=== PATIENT | female | born 1955 | race Caucasian/White ===

== ENCOUNTER 2017-01-20 07:33 | Day surgery (SDC) | payer BC, OTHER ==
[~2017-01-20 07:33] MED LIST: Lactated Ringers 1,000 ML IV SCH
[2017-01-20] MEDS ORDERED: Propofol 200 MG/20 ML SDV ONE ×2 (09:32→09:46)
[2017-01-20] MEDS ORDERED: fentaNYL 100 MCG/2 ML SDV ONE (09:32)
[2017-01-20 12:35] VITALS: BP 119/68
--- NOTE | 2017-01-20 15:04 | OR ---
PREOPERATIVE DIAGNOSIS: History of colon polyps. Last colonoscopy in 2011. She does have chronic constipation as well. POSTOPERATIVE DIAGNOSES: 1. Long redundant colon which did require scope maneuvering as well as abdominal pressure to obtain cecal intubation. 2. Moderate hemorrhoids. PROCEDURE: Colonoscopy. ANESTHESIA: Monitored anesthesia care. BOWEL PREP: Fair and did require significant amount of irrigation and suctioning. DESCRIPTION OF PROCEDURE: Shu was a 61-year-old female who was brought to the endoscopy suite after discussing risks and benefits of the procedure. Informed consent was obtained for conscious sedation and colonoscopy with or without biopsy and/or polypectomy. We also discussed possibility of missed lesions. Pre-procedure exam was unremarkable. IV, oxygen, and monitors were placed. The patient was placed in the left lateral decubitus position. Sedation was administered and a digital rectal exam was performed and was remarkable for some moderate external hemorrhoids, not acutely inflamed. Colonoscope was passed into the rectum and slowly advanced all the way to the cecum. Cecum was viewed and photographed. The colonoscope was slowly withdrawn and the mucosa was closed observed in a direct circumferential manner. The ascending colon was unremarkable. The transverse colon was unremarkable. The descending colon was unremarkable. The sigmoid colon was unremarkable. Retroflexion was performed, and rectal mucosa was remarkable for some moderate internal hemorrhoids, not acutely inflamed. Scope was removed. The patient tolerated the procedure well. The patient was monitored until that baseline status. Discharge instructions were reviewed and the patient was discharged in good condition. COMPLICATIONS: None. TOTAL TIME: 24 minutes. ESTIMATED BLOOD LOSS: None. RECOMMENDATIONS/FOLLOWUP: Recommend repeating colonoscopy again in 5 years given the personal history of colon polyps. I would like to kindly thank January Saravia for this referral. DMB: 01/20/2017 10:14:22 MODL: 01/20/2017 14:38:28 /[id number]
== END 2017-01-20 12:50 | disposition home or self-care (01) ==
LOC: MERGE 07:33 → VM.SDS 07:33
PROVIDERS: ATTEND Family Medicine
DX: Z12.11 Encounter for screening for malignant neoplasm of colon (principal); Z86.010 Personal history of colon polyps; K64.8 Other hemorrhoids; K64.4 Residual hemorrhoidal skin tags; E03.9 Hypothyroidism, unspecified; E78.2 Mixed hyperlipidemia; E55.9 Vitamin D deficiency, unspecified; E66.9 Obesity, unspecified; Z68.35 Body mass index [BMI] 35.0-35.9, adult; Z88.8 Allergy status to other drugs, medicaments and biological substances; Z79.899 Other long term (current) drug therapy; Z90.710 Acquired absence of both cervix and uterus; Z98.890 Other specified postprocedural states
CPT/HCPCS: 45378; J2704; J3010; J7120

== ENCOUNTER 2022-04-01 10:22 | Day surgery (SDC) | payer MEDICARE, OTHER ==
[2022-04-01] MEDS ORDERED: fentaNYL 100 MCG/2 ML SDV ONE (11:10)
[2022-04-01] MEDS ORDERED: Propofol 200 MG/20 ML SDV ONE ×5 (11:10→13:15)
[2022-04-01 13:59] VITALS: BP 124/70; PULSE 76
== END 2022-04-01 14:46 | disposition home or self-care (01) ==
LOC: VM.SDS 10:22
PROVIDERS: ATTEND Family Medicine
DX: Z12.11 Encounter for screening for malignant neoplasm of colon (principal); K64.9 Unspecified hemorrhoids; E03.9 Hypothyroidism, unspecified; E66.9 Obesity, unspecified; E78.2 Mixed hyperlipidemia; Z79.899 Other long term (current) drug therapy; Z90.710 Acquired absence of both cervix and uterus; Z98.890 Other specified postprocedural states; Z86.010 Personal history of colon polyps; Z88.6 Allergy status to analgesic agent; Z68.38 Body mass index [BMI] 38.0-38.9, adult; Z88.8 Allergy status to other drugs, medicaments and biological substances
CPT/HCPCS: 00811; G0105; J2704; J3010; J7120

== ENCOUNTER 2024-05-24 10:57 | Inpatient (IN) | payer MEDICARE, OTHER ==
[2024-05-24] MEDS ORDERED: Sodium Chloride 0.9% 10 ML Syringe FLUSH PRN (12:14)
[2024-05-24 13:02] LABS: BASOPHILS PERCENT AUTO 0.3 % (0.2-1.2); EOSINOPHILS ABSOLUTE AUTO 0.1 x10^3/uL (0.0-0.5); EOSINOPHILS PERCENT AUTO 0.9 % (0.0-4.0); HEMATOCRIT 38.1 % (33.0-47.0); HEMOGLOBIN 12.6 g/dL (12.0-16.0); IMMATURE GRAN ABSOLUTE AUTO 0.04 x10^3/uL (0.00-0.07); LYMPHOCYTES PERCENT AUTO 58.3 % (25.0-50.0); MEAN CORPUSCULAR HGB CONC 33.1 g/dL (32.0-36.0); MEAN CORPUSCULAR VOLUME 96.7 fL (78.0-93.0); MONOCYTES ABSOLUTE AUTO 0.4 x10^3/uL (0.0-0.8); MONOCYTES PERCENT AUTO 6.1 % (2.0-11.0); NEUTROPHILS ABSOLUTE AUTO 2.3 x10^3/uL (1.8-7.7); NEUTROPHILS PERCENT AUTO 33.8 % (50.0-80.0); PLATELET COUNT,PLT 228 x10^3/uL (130-400); RED BLOOD CELL COUNT 3.94 x10^6/uL (4.00-5.50); WHITE BLOOD CELL COUNT,WBC 6.8 x10^3/uL (4.0-10.0)
[2024-05-24 13:22] LABS: A/G RATIO 0.83; ALBUMIN 3.3 g/dL (3.4-5.0); BILIRUBIN TOTAL 0.5 mg/dL (0.2-1.0); CALCIUM 8.9 mg/dL (8.5-10.1); EST CRCL DRUG DOSING (CG) 51.63 mL/min; POTASSIUM,K 3.9 mmol/L (3.5-5.1); PROTEIN TOTAL,TP 7.3 g/dL (6.4-8.2)
[2024-05-24] MEDS: Enoxaparin 100 MG/1 ML Syringe SUBCUT ONE (13:22)
[2024-05-24 13:23] LABS: ANION GAP 14.9 mmol/L (5-15)
[2024-05-24 13:32] LABS: PROTHROMBIN TIME 10.4 SEC (8.9-11.5); PTT,PARTIAL THROMBOPLSTIN TIME 27.7 SEC (21.9-33.8)
[2024-05-24] MEDS: Apixaban 2.5 MG Tab PO SCH (20:06)
[2024-05-25] MEDS: Levothyroxine 25 MCG Tab PO SCH (06:29)
[2024-05-25] MEDS: Levothyroxine 112 MCG Tab PO SCH (06:29)
[2024-05-25] MEDS ORDERED: Levothyroxine 125 MCG Tab PO SCH (07:00)
[2024-05-25 07:14] LABS: BASOPHILS PERCENT AUTO 0.4 % (0.2-1.2); EOSINOPHILS ABSOLUTE AUTO 0.1 x10^3/uL (0.0-0.5); EOSINOPHILS PERCENT AUTO 1.7 % (0.0-4.0); HEMATOCRIT 36.3 % (33.0-47.0); IMMATURE GRAN ABSOLUTE AUTO 0.03 x10^3/uL (0.00-0.07); LYMPHOCYTES ABSOLUTE AUTO 3.4 x10^3/uL (1.0-4.8); LYMPHOCYTES PERCENT AUTO 64.2 % (25.0-50.0); MEAN CORPUSCULAR HEMOGLOBIN 32.2 pg (26.0-32.0); MEAN CORPUSCULAR HGB CONC 33.1 g/dL (32.0-36.0); MEAN CORPUSCULAR VOLUME 97.3 fL (78.0-93.0); MONOCYTES ABSOLUTE AUTO 0.5 x10^3/uL (0.0-0.8); MONOCYTES PERCENT AUTO 8.7 % (2.0-11.0); NEUTROPHILS ABSOLUTE AUTO 1.3 x10^3/uL (1.8-7.7); NEUTROPHILS PERCENT AUTO 24.4 % (50.0-80.0); PLATELET COUNT,PLT 223 x10^3/uL (130-400); RED BLOOD CELL COUNT 3.73 x10^6/uL (4.00-5.50); WHITE BLOOD CELL COUNT,WBC 5.3 x10^3/uL (4.0-10.0)
[2024-05-25 07:26] LABS: ANION GAP 11.1 mmol/L (5-15); CREATININE 0.9 mg/dL (0.55-1.02); EST CRCL DRUG DOSING (CG) 57.37 mL/min; POTASSIUM,K 4.1 mmol/L (3.5-5.1)
[2024-05-25 09:14] VITALS: BP 152/78; PULSE 98
[2024-05-26 22:07] LABS: AT III ANTIGEN 90 % (82-136); AT III ENZYMATIC 106 % (76-128)
[2024-05-27 05:07] LABS: B2GLYCPRT1 IGG AB <10 SGU (<=20); B2GLYCPRT1 IGM AB <10 SMU (<=20)
[2024-05-29 12:07] LABS: ANTI-XA QUALITATIVE INTERP Not Performed (Not Present); ANTICOAG MEDICATION NEUTRALIZ Not Performed (Not Performed); DRVVT 1:1 MIX RATIO Not Performed (<=1.20); DRVVT CONFIRMATION RATIO Not Performed (<=1.20); DRVVT SCREEN RATIO 0.77 (<=1.20); HEXAGONAL PHOSPHOLIPID CONFIRM Not Performed s (<=7.9); NEUTRALIZED DRVVT SCREEN RATIO Not Performed (<=1.20); NEUTRALIZED PTT-LA RATIO Not Performed (<=1.20); PROTHROMBIN TIME (PT) 13.6 s (12.0-15.5); PTT-LA RATIO 1.08 (<=1.20); THROMBIN TIME (TT) Not Performed s (<=19.5)
[2024-05-29 23:01] LABS: FACTOR V LEIDEN R506Q MUTATION Heterozygous; FACV SPECIMEN Whole Blood
== END 2024-05-25 10:00 | disposition home or self-care (01) | DRG 299 ==
LOC: VM.MS 10:57
PROVIDERS: ADMIT Internal Medicine; ATTEND Internal Medicine
DX: I82.493 Acute embolism and thrombosis of other specified deep vein of lower extremity, bilateral (principal); I26.99 Other pulmonary embolism without acute cor pulmonale; J98.11 Atelectasis; C50.919 Malignant neoplasm of unspecified site of unspecified female breast; E03.9 Hypothyroidism, unspecified; E78.2 Mixed hyperlipidemia; E66.9 Obesity, unspecified; H91.90 Unspecified hearing loss, unspecified ear; R03.0 Elevated blood-pressure reading, without diagnosis of hypertension; Z88.5 Allergy status to narcotic agent; Z92.3 Personal history of irradiation; Z88.8 Allergy status to other drugs, medicaments and biological substances; Z90.710 Acquired absence of both cervix and uterus; Z68.37 Body mass index [BMI] 37.0-37.9, adult; Z98.890 Other specified postprocedural states; Z79.890 Hormone replacement therapy
CPT/HCPCS: 36415; 80048; 80053; 81241; 84443; 85025; 85300; 85301; 85520; 85525; 85598; 85610; 85613; 85670; 85730; 85732; 86146; 86147; A9270-GY; J1650